=== PATIENT | female | born 1970 | race Caucasian/White ===

== ENCOUNTER 2016-11-22 13:33 | Emergency (ER) | payer OTHER ==
[~2016-11-22] VITALS: Ht 162.6 cm; Wt 87.7 kg
[~2016-11-22 13:33] MED LIST: PERCT10 PO
[2016-11-22] MEDS ORDERED: CIPR1DRO2 OU (13:44)
[2016-11-22] MEDS ORDERED: LISI5TAB PO (13:45)
[2016-11-22] MEDS ORDERED: PROPARACAINE HCL 0.5% 15 ML OPHTHALMIC SOLUTION OU ONE (16:15)
[2016-11-22 17:27] VITALS: BP 126/89
== END 2016-11-22 17:24 | disposition home or self-care (01) ==
LOC: EMS 13:35
DX: H10.9 Unspecified conjunctivitis (principal); H53.143 Visual discomfort, bilateral; R19.7 Diarrhea, unspecified; R11.2 Nausea with vomiting, unspecified; R10.9 Unspecified abdominal pain; I10 Essential (primary) hypertension; F17.210 Nicotine dependence, cigarettes, uncomplicated
CPT/HCPCS: 99283